=== PATIENT | female | born 1945 | race Caucasian/White ===

== ENCOUNTER 2023-06-01 15:28 | Inpatient (IN) | payer OTHER ==
[~2023-06-01] VITALS: Ht 157.5 cm; Wt 87.4 kg
[2023-06-01 05:12] VITALS: BP 150/62; PULSE 79; RESP 21; TEMP 97.8; O2SAT 97
[~2023-06-01 15:28] MED LIST: CYCL-839 PO; FURO40TA4 PO; GABA800T97 PO; HYDROCO/APAP; LEVO150T10; LISI40TA16
[2023-06-01 16:33] VITALS: RESP 17; O2SAT 98
[2023-06-01] MEDS: SODIUM CHLORIDE 0.9% 1,000 ML IVB ONE (16:55)
[2023-06-01 17:02] LABS: Urine Bacteria MOD /hpf (None Seen); Urine Blood 2+ /uL (Negative); Urine Clarity Turbid (Clear); Urine Color Colorless (Yellow); Urine Protein, UAD 1+ (Negative); Urine Specific Gravity 1.008 (1.001-1.035); Urine Urobilinogen Normal (Negative); Urine WBC 307 /hpf (0 - 5); Urine WBC Clumps PRESENT /hpf (None Seen); Urine pH 6.5 (5.0-9.0)
[2023-06-01 17:33] LABS: Basophils # (auto) 0 10 ^3/uL (0-0.2); Basophils % (auto) 0.3 % (0.0-2.0); Eosinophils # (auto) 0.1 10 ^3/uL (0-0.8); Eosinophils % (auto) 1.2 % (0.0-7.0); Hematocrit 33.5 % (36.0-46.0); Hemoglobin 11.1 g/dL (12.2-16.2); Lymphocytes # (auto) 1.3 10 ^3/uL (0.4-5.4); Mean Corpuscular Hemoglobin 28.9 pg (28.0-32.0); Mean Corpuscular Volume 87.4 fL (80.0-100.0); Monocytes # (auto) 0.4 10 ^3/uL (0-1.3); Monocytes % (auto) 4.9 % (0.0-12.0); Neutrophils # (auto) 7.2 10 ^3/uL (1.6-8.6); Neutrophils % (auto) 79.6 % (37.0-80.0); Nucleated Red Blood Cells % 0.1 %; Red Blood Cells 3.83 10^6/uL (4.0-5.20); Red Cell Distribution Width 15.3 % (11.8-14.3)
[2023-06-01 17:41] LABS: Chloride 109 mmol/L (98-107); Sodium 141 mmol/L (136-145)
[2023-06-01 17:42] LABS: Anion Gap 12 (5-15); Calcium 8.6 mg/dL (8.5-10.1); Carbon Dioxide 20 mmol/L (20-30)
[2023-06-01 17:47] LABS: BUN/Creatinine Ratio 11.7 (10.0-20.0); Blood Urea Nitrogen 11 mg/dL (9-23); Glucose 292 mg/dL (74-106)
[2023-06-01] MEDS: POTASSIUM CHL 20MEQ/100ML 100 ML IV ONE (18:27)
[2023-06-01] MEDS: POTASSIUM CHL 20 Meq TABLET PO ONE (18:27)
[2023-06-01 19:30] VITALS: PULSE 77; RESP 11; O2SAT 98
[2023-06-01] MEDS ORDERED: ONDANSETRON HCL 4 MG/2 ML VIAL IV PRN (20:45)
[2023-06-01] MEDS ORDERED: IPRATROPIUM BROM 0.5 MG/2.5ML INH SOL NEB PRN (20:45)
[2023-06-01] MEDS ORDERED: DEXTROSE (50%) 50ML SYRG IV PRN (20:45)
[2023-06-01] MEDS ORDERED: ALBUTEROL SULF 2.5 MG/0.5ML(0.5%) NEB SOLN NEB PRN (20:45)
[2023-06-01] MEDS ORDERED: HYDROcodone-ACET 5/325MG TAB PO PRN (20:45)
[2023-06-01] MEDS ORDERED: NITROGLYCERIN 0.4 MG SL TAB SL PRN (20:45)
[2023-06-01] MEDS ORDERED: MORPHINE SULFATE INJ 2 MG/ml SYRG IV PRN (20:45)
[2023-06-01] MEDS ORDERED: METO25TA93 PO (21:06)
[2023-06-01] MEDS ORDERED: ATOR20TA50 PO (21:06)
[2023-06-01] MEDS ORDERED: hydrALAZINE HCL 20 MG/ML VL IV PRN (21:15)
[2023-06-01] MEDS: ACCU-CHEK COMFORT CURVE STRIP VI SCH (22:00)
[2023-06-01] MEDS: InsuLIN REG 1unit/0.01ml Soln (100units/ml) SC SCH (22:00)
[2023-06-01] MEDS: ATORVASTATIN 20 MG TAB PO SCH (22:32)
[2023-06-01] MEDS: GABAPENTIN 400 MG CAP PO SCH (22:32)
[2023-06-01] MEDS: levoFLOXacin 750MG 150 ML IV ONE (22:32)
[2023-06-01 23:09] VITALS: BP 128/75; PULSE 77; RESP 17; TEMP 98.4; O2SAT 98
[2023-06-02] VITALS (11 sets, daily range): BP systolic 118–164; BP diastolic 54–73; PULSE 62–87; RESP 20–23; TEMP 97.7–98; O2SAT 95–98
[2023-06-02] MEDS: POTASSIUM CHL 20 Meq TABLET PO ONE ×6 (01:55→17:25)
[2023-06-02] MEDS ORDERED: ACET-6 PO (03:37)
[2023-06-02] MEDS ORDERED: OMEP1CAP70 PO (03:37)
[2023-06-02] MEDS ORDERED: VENL75CA78 PO (03:37)
[2023-06-02] MEDS: PNEUMOCOCCAL VACC POLYS 25 MCG/0.5 ML VIAL IM ONE (05:45)
[2023-06-02 06:28] LABS: Alanine Aminotransferase 14 U/L (7-40); Albumin 4.1 g/dL (3.2-4.8); Alkaline Phosphatase 87 U/L (46-116); Anion Gap 10 (5-15); Aspartate Aminotransferase 31 U/L (13-40); Calcium 8.4 mg/dL (8.5-10.1); Carbon Dioxide 20 mmol/L (20-30); Chloride 113 mmol/L (98-107); Glucose 231 mg/dL (74-106); LDL Cholesterol 145 mg/dL (< 100); Sodium 143 mmol/L (136-145); Triglycerides 175 mg/dL (< 150)
[2023-06-02 06:29] LABS: Bilirubin, Total 0.6 mg/dL (0.2-1.0); Cholesterol 192 mg/dL (< 200); HDL Cholesterol 34 mg/dL (40-59); Total Protein 7.2 g/dL (5.7-8.2)
[2023-06-02 06:37] LABS: Basophils # (auto) 0 10 ^3/uL (0-0.2); Basophils % (auto) 0.3 % (0.0-2.0); Eosinophils # (auto) 0.2 10 ^3/uL (0-0.8); Eosinophils % (auto) 2.3 % (0.0-7.0); Hematocrit 31.7 % (36.0-46.0); Hemoglobin 10.6 g/dL (12.2-16.2); Lymphocytes # (auto) 1.6 10 ^3/uL (0.4-5.4); Lymphocytes % (auto) 19.5 % (10.0-50.0); Mean Corpuscular Hemoglobin 28.8 pg (28.0-32.0); Mean Corpuscular Hgb Conc. 33.5 g/dL (32.0-36.0); Mean Corpuscular Volume 86.1 fL (80.0-100.0); Monocytes # (auto) 0.5 10 ^3/uL (0-1.3); Monocytes % (auto) 6.6 % (0.0-12.0); Neutrophils # (auto) 5.7 10 ^3/uL (1.6-8.6); Neutrophils % (auto) 71.3 % (37.0-80.0); Nucleated Red Blood Cells % 0.1 %; Red Blood Cells 3.68 10^6/uL (4.0-5.20); Red Cell Distribution Width 15.6 % (11.8-14.3); White Blood Cell 8.1 10^3/uL (4.4-10.8)
[2023-06-02] MEDS: LEVOTHYROXINE SODIUM 50 MCG TAB PO SCH (06:43)
[2023-06-02 06:49] LABS: BUN/Creatinine Ratio 5.6 (10.0-20.0); Blood Urea Nitrogen < 5 mg/dL (9-23)
[2023-06-02 06:50] LABS: Potassium 2.4 mmol/L (3.5-5.1)
[2023-06-02] MEDS: FUROSEMIDE 20 MG/2 ML VIAL IV SCH (09:41)
[2023-06-02] MEDS: PANTOPRAZOLE 40 MG TAB PO SCH (09:41)
[2023-06-02] MEDS: METOPROLOL SUCCINATE XL 50 MG TAB PO SCH (09:42)
[2023-06-02] MEDS: ENOXAPARIN SOD 40 MG/0.4 ML SYRINGE SC SCH (09:42)
[2023-06-02] MEDS ORDERED: QUET100T47 PO (11:22)
[2023-06-02] MEDS: levoFLOXacin 750MG 150 ML IV SCH (23:19)
[2023-06-03] VITALS (10 sets, daily range): BP systolic 118–158; BP diastolic 46–61; PULSE 60–77; RESP 15–20; TEMP 98.1–98.5; O2SAT 96–98
[2023-06-03] MEDS: POTASSIUM CHL 20 Meq TABLET PO ONE ×5 (01:15→17:16)
[2023-06-03] MEDS: POTASSIUM CHL 20MEQ/100ML 100 ML IV ONE (01:15)
[2023-06-03] MEDS: GABAPENTIN 400 MG CAP ONE ×2 (01:16→01:17)
[2023-06-03] MEDS: levoFLOXacin 750MG 150 ML IV ONE (01:16)
[2023-06-03] MEDS: ATORVASTATIN 20 MG TAB ONE (01:16)
[2023-06-03] MEDS: InsuLIN REG 1unit/0.01ml Soln (100units/ml) ONE (01:17)
[2023-06-03] MEDS: LEVOTHYROXINE SODIUM 100 MCG TAB ONE (01:17)
[2023-06-03] MEDS: LEVOTHYROXINE SODIUM 50 MCG TAB ONE ×2 (01:17→01:18)
[2023-06-03 06:55] LABS: Basophils # (auto) 0 10 ^3/uL (0-0.2); Basophils % (auto) 0.4 % (0.0-2.0); Eosinophils # (auto) 0.2 10 ^3/uL (0-0.8); Hematocrit 29.9 % (36.0-46.0); Hemoglobin 10.1 g/dL (12.2-16.2); Lymphocytes # (auto) 1.7 10 ^3/uL (0.4-5.4); Lymphocytes % (auto) 24.4 % (10.0-50.0); Mean Corpuscular Hemoglobin 29.6 pg (28.0-32.0); Mean Corpuscular Hgb Conc. 33.8 g/dL (32.0-36.0); Mean Corpuscular Volume 87.5 fL (80.0-100.0); Monocytes # (auto) 0.4 10 ^3/uL (0-1.3); Monocytes % (auto) 6.2 % (0.0-12.0); Neutrophils # (auto) 4.5 10 ^3/uL (1.6-8.6); Nucleated Red Blood Cells % 0.1 %; Red Blood Cells 3.42 10^6/uL (4.0-5.20); Red Cell Distribution Width 15.6 % (11.8-14.3); White Blood Cell 6.8 10^3/uL (4.4-10.8)
[2023-06-03 07:16] LABS: Alanine Aminotransferase 18 U/L (7-40); Alkaline Phosphatase 78 U/L (46-116); BUN/Creatinine Ratio 9.1 (10.0-20.0); Blood Urea Nitrogen 8 mg/dL (9-23); Carbon Dioxide 26 mmol/L (20-30); Glucose 183 mg/dL (74-106); LDL Cholesterol 122 mg/dL (< 100); Sodium 143 mmol/L (136-145); Triglycerides 202 mg/dL (< 150)
[2023-06-03 07:17] LABS: Albumin 3.9 g/dL (3.2-4.8); Aspartate Aminotransferase 34 U/L (13-40); Bilirubin, Total 0.5 mg/dL (0.2-1.0); Cholesterol 175 mg/dL (< 200); HDL Cholesterol 27 mg/dL (40-59); Total Protein 6.9 g/dL (5.7-8.2)
[2023-06-03 07:23] LABS: Anion Gap 7 (5-15); Calcium 8.5 mg/dL (8.5-10.1); Chloride 110 mmol/L (98-107)
[2023-06-03 07:26] LABS: Potassium 2.4 mmol/L (3.5-5.1)
[2023-06-03 07:43] LABS: Magnesium 2.1 mg/dL (1.6-2.6)
[2023-06-03] MEDS: cefTRIAXone 1GM/50ML D5W 50 ML IV ONE (11:21)
[2023-06-03] MEDS: DOCUSATE SOD 100 MG CAP PO PRN (22:17)
[2023-06-04] VITALS (12 sets, daily range): BP systolic 102–150; BP diastolic 48–60; PULSE 57–80; RESP 16–19; TEMP 97.7–98.5; O2SAT 95–99
[2023-06-04 07:07] LABS: Anion Gap 9 (5-15); Carbon Dioxide 23 mmol/L (20-30); Chloride 109 mmol/L (98-107); Potassium 2.7 mmol/L (3.5-5.1); Sodium 141 mmol/L (136-145)
[2023-06-04 07:09] LABS: Calcium 9.1 mg/dL (8.7-10.4)
[2023-06-04 07:13] LABS: BUN/Creatinine Ratio 12.4 (10.0-20.0); Blood Urea Nitrogen 11 mg/dL (9-23); Glucose 232 mg/dL (74-106)
[2023-06-04] MEDS: cefTRIAXone 1GM/50ML D5W 50 ML IV SCH (09:06)
[2023-06-04] MEDS: POTASSIUM CHL 20 Meq TABLET PO ONE ×3 (09:07→17:51)
[2023-06-05] VITALS (8 sets, daily range): BP systolic 128–154; BP diastolic 52–57; PULSE 59–78; RESP 16–18; TEMP 97.4–98.3; O2SAT 94–98
[2023-06-05] MEDS: MORPHINE SULFATE INJ 2 MG/ml SYRG IV PRN (01:41)
[2023-06-05 12:19] LABS: Chloride 105 mmol/L (98-107); Potassium 3.1 mmol/L (3.5-5.1); Sodium 138 mmol/L (136-145)
[2023-06-05 12:20] LABS: Anion Gap 10 (5-15); Carbon Dioxide 23 mmol/L (20-30)
[2023-06-05 12:21] LABS: Calcium 9.1 mg/dL (8.7-10.4)
[2023-06-05 12:26] LABS: BUN/Creatinine Ratio 10.8 (10.0-20.0); Blood Urea Nitrogen 10 mg/dL (9-23); Glucose 323 mg/dL (74-106)
[2023-06-05] MEDS: POTASSIUM CHL 20 Meq TABLET PO ONE (13:10)
[2023-06-05] MEDS: ACETAMINOPHEN 325 MG TAB PO PRN (13:23)
[2023-06-05] MEDS ORDERED: POTA-228 PO (15:30)
== END 2023-06-05 17:30 | disposition home or self-care (01) | DRG 640 ==
LOC: EDUNIT# 15:28 → EDBD 15:28 → ER 15:28 → TELE 20:51 → TELE-WESTW 06-02 02:36
PROVIDERS: ADMIT Nurse Practitioner Family; ATTEND Internal Medicine Geriatric Medicine
DX: E87.6 Hypokalemia (principal); G93.41 Metabolic encephalopathy; I50.33 Acute on chronic diastolic (congestive) heart failure; N39.0 Urinary tract infection, site not specified; I11.0 Hypertensive heart disease with heart failure; E66.01 Morbid (severe) obesity due to excess calories; I16.0 Hypertensive urgency; E03.9 Hypothyroidism, unspecified; E11.40 Type 2 diabetes mellitus with diabetic neuropathy, unspecified; E78.5 Hyperlipidemia, unspecified; Z79.4 Long term (current) use of insulin; Z88.0 Allergy status to penicillin; Z90.710 Acquired absence of both cervix and uterus; Z68.35 Body mass index [BMI] 35.0-35.9, adult; Z90.49 Acquired absence of other specified parts of digestive tract; W18.39XA Other fall on same level, initial encounter; Y93.89 Activity, other specified; Y92.098 Other place in other non-institutional residence as the place of occurrence of the external cause; Y99.8 Other external cause status; W18.30XA Fall on same level, unspecified, initial encounter
CPT/HCPCS: 36415; 70450; 71045; 80048; 80053; 80061; 81001; 82962; 83036; 83605; 83735; 83880; 84132; 84443; 85025; 87040; 87086; 93005; 93306; 93970; 97110; 97116; 97163; 97530; 99291; G0378; J1815; J1956; J3480